=== PATIENT | female | born 1970 | race African-American/Black ===

== ENCOUNTER 2017-03-07 16:18 | Emergency (ER) | payer OTHER ==
[~2017-03-07] VITALS: Ht 152.4 cm; Wt 99.8 kg
--- NOTE | ~2017-03-07 | EKG ---
[address] [address] ELECTROCARDIOGRAM REPORT Name: KAUR MARVIN CRISTYChela Room #: DEP [facility]#: [id number] Admission: 03/07/17 Attend Phys: Discharge: 03/07/17 Date of : 70 Report #: [id number] THIS REPORT FOR: //name// [facility] ED Test Date: 2017-03-07 Test Time: 17:28:54 Pat Name: KAUR MARVIN Department: Room: Gender: F Policy Service Coordinator: : 1970 Requested By: Jesus Alberto Phillips Order Number: [id number] MD: Donavan Quick Measurements Intervals [place] Rate: 80 P: 43 CT: 151 QRS: 18 QRSD: 110 T: 26 QT: 447 QTc: 516 Interpretive Statements Sinus rhythm Prolonged QT interval Compared to ECG 10/08/2016 22:02:24 Sinus tachycardia no longer present QT interval has lengthened Electronically Signed On 03-08-2017 8:42:31 CDT by Donavan Quick [email or web address] <ELECTRONICALLY SIGNED> By: Donavan Quick MD, [facility] 03/08/17 0842 27 Donavan Quick MD, [facility] /EPI
[~2017-03-07 16:18] MED LIST: ALBUTEROL INHAL17 GM; AVELOX 400 MG400 MG PO; BENZONATATE100 MG PO; CEFTIN500 MG PO; CHEST CONGESTI400 MG PO; DUONEB 2.5-0.5 M3 ML INH; LOSARTAN-HCTZ1 EACH; NOHOMEMEDICATIONS; NORCO 5-325 TA1 EACH PO; PANTOPRAZOLE SO40 M1 PO; PHENERGAN-CODE120 ML; PREDNISONE 10 M10 MG; PREDNISONE 20 M20 M1 PO; PREDNISONE 20 M20 MG PO; SYMBICORT80 MCG/4.1 INH; VENLAFAXINE HCL75 MG; XANAX 0.5 MG0.5 MG; ZPAK PO
[2017-03-07 16:44] LABS: ABSOLUTE NEUTROPHILS 8.1 thou/uL (1.4-8.2); BASOPHILS 0.6 % (0.0-2.0); EOSINOPHILS 0.3 % (0.0-3.0); HEMATOCRIT 36.4 % (37.0-47.0); HEMOGLOBIN 12.2 gm/dL (12.0-15.0); LYMPHOCYTES 15.4 % (24.0-44.0); MCH 28.7 pg (26.0-34.0); MCHC 33.6 g/dL (28.0-37.0); MCV 85.6 fL (80.0-100.0); MONOCYTES 4.4 % (1.0-8.0); PLATELET COUNT 297 thou/uL (150-400); POLYS 79.3 % (36.0-66.0); RBC 4.25 mil/uL (4.20-5.00); RDW 13.6 % (10.5-14.5); WBC 10.2 thou/uL (4.0-11.0)
[2017-03-07 16:46] LABS: MANUAL DIFF NO
[2017-03-07 16:53] LABS: CALCIUM 9.1 mg/dL (8.5-10.1); CREATININE 1.3 mg/dL (0.6-1.0); POTASSIUM 3.7 mmol/L (3.5-5.1)
[2017-03-07 16:58] LABS: ALBUMIN 3.9 g/dL (3.4-5.0); TOTAL BILIRUBIN 0.2 mg/dL (<0.1-1.0); TOTAL PROTEIN 7.6 g/dL (6.4-8.2)
[2017-03-07 17:41] LABS: MAGNESIUM 1.5 mg/dL (1.8-2.4); TROPONIN-I < 0.04 ng/mL (<0.04-0.07)
[2017-03-07 17:48] LABS: ABG SAMPLE TYPE ARTERIAL; BE(vivo) -2.8 mmol/L (-2 to +3); HCO3 18.9 mmol/L (22.0-26.0); LACTATE 5.23 mmol/L (0.5-2.0); O2(CT) 16.8 mL/dL (15.0-23.0); O2Hb 92.8 % (92.0-98.0); PCO2 25.2 mmHg (35.0-45.0); PO2 65.1 mmHg (80.0-100.0); STICK SITE R.RADIAL; pH 7.493 (7.360-7.450); sO2 94.7 % (92.0-98.0); tCO2 19.7 mmol/L (24.0-30.0)
[2017-03-07] MEDS ORDERED: PREDNISONE 20 M20 MG PO (18:42)
[2017-03-07 19:01] VITALS: BP 116/53
== END 2017-03-07 19:36 | disposition home or self-care (01) ==
LOC: ER 16:18
PROVIDERS: Physician Assistant
DX: J45.901 Unspecified asthma with (acute) exacerbation (principal); E83.42 Hypomagnesemia; E87.2 Acidosis; D86.9 Sarcoidosis, unspecified; I10 Essential (primary) hypertension; F32.9 Major depressive disorder, single episode, unspecified; Z90.710 Acquired absence of both cervix and uterus; Z90.49 Acquired absence of other specified parts of digestive tract; Z88.5 Allergy status to narcotic agent; Z88.8 Allergy status to other drugs, medicaments and biological substances